=== PATIENT | female | born 1965 | race Caucasian/White ===

== ENCOUNTER 2021-11-26 11:28 | Outpatient (CLI) | payer OTHER | END 2021-11-26 11:29 | disposition home or self-care (01) | LOC: NAV RAD 11:28 | PROVIDERS: ATTEND Family Medicine | DX: M51.16 Intervertebral disc disorders with radiculopathy, lumbar region (principal); M47.26 Other spondylosis with radiculopathy, lumbar region | CPT/HCPCS: 72100 ==